=== PATIENT | female | born 1940 | race Caucasian/White ===

== ENCOUNTER → 2018-02-08 | Outpatient (CLI) | payer OTHER | LOC: RAD 09:20 | DX: J44.9 Chronic obstructive pulmonary disease, unspecified (principal); I70.0 Atherosclerosis of aorta; J98.4 Other disorders of lung; R91.8 Other nonspecific abnormal finding of lung field ==

== ENCOUNTER → 2018-02-15 | Outpatient (CLI) | payer OTHER | LOC: CAT 10:28 | DX: J43.9 Emphysema, unspecified (principal); R91.1 Solitary pulmonary nodule ==